=== PATIENT | female | born 1960 | race Caucasian/White ===

== ENCOUNTER → 2019-01-19 | Outpatient (CLI) | payer MEDICARE ==
--- NOTE | 2019-01-19 14:54 | CT ---
EXAMINATION TYPE: CT lower extremity RT wo con DATE OF EXAM: 01/19/2019 COMPARISON: None HISTORY: Right foot pain and deformity. CT DLP: 254.7 mGycm Automated exposure control for dose reduction was used. FINDINGS: Bone mineralization is decreased. There are osteoarthritic changes, spurring and joint space loss at the tibiotalar joint. Small ossific densities present at the level of the anterior aspect at the dist al talofibular joint may be due to old trauma. Large geode present in the sustentaculum jo and ther e are geodes within the cuboid and adjoining calcaneus. Bony ankylosis is present at the proximal fou rth and fifth metatarsals. Joint space loss present at the tarsometatarsal joints with marginal spurr ing present also at the intertarsal joints. No evident fracture or dislocation. Equinovarus deformity noted. Achilles tendon shows calcification at its insertion site. There is some atrophy of the muscu lature within the foot, fatty replacement. Increased soft tissue attenuation present at the level of the proximal fifth metatarsal could be indicative of underlying cellulitis, similar findings at the l evel of the distal aspect of the fifth metatarsal. Flexor and extensor tendons. To be intact. Peronea l longus and brevis tendons also thought to be intact. IMPRESSION: EQUINOVARUS RIGHT FOOT DEFORMITY, MARKED OSTEOARTHRITIC CHANGE, LOSS OF BONE MINERALIZATION, POSSIBLE CELLULITIS AND ADDITIONAL FINDINGS ABOVE INCLUDING BONY ANKYLOSIS OF THE PROXIMAL FOURTH AND FIFTH M ETATARSALS
== END ==
LOC: RADCTMAIN 13:51
PROVIDERS: ATTEND Orthopaedic Surgery
DX: M19.071 Primary osteoarthritis, right ankle and foot (principal); Q66.0 Congenital talipes equinovarus

== ENCOUNTER 2019-04-12 07:59 | Inpatient (IN) | payer MEDICARE ==
[2019-04-10 16:04] VITALS: BMI 36.6
[~2019-04-12 07:59] MED LIST: DEXAMETHASONE SOD PHOSPHATE 10 MG/ML 1 ML VIAL IV ONE; HYDROmorphone 0.5 MG/0.5 ML SYRINGE IVP PRN; LACTATED RINGERS 1,000 ML IV SCH; LIDOCAINE 1% 20 ML VIAL (10MG/ML) FOR IV START INTRADERMA PRN; MIDAZOLAM 2 MG/2 ML VIAL IV PRN; ONDANSETRON 4 MG/2 ML VIAL IVP ONE; SCOPOLAMINE 1.5MG/72HR PATCH TRANSDERM ONE
[2019-04-12 08:56] LABS: Glucose,Whole Blood 110 mg/dL (75-99)
[2019-04-12] MEDS ORDERED: MIDAZOLAM 2 MG/2 ML VIAL IVP ONE (09:27)
[2019-04-12] MEDS ORDERED: fentaNYL (PF) 50 MCG/ML 2 ML AMP ONE (10:49)
[2019-04-12] MEDS ORDERED: DEXAMETHASONE SOD PHOSPHATE 4 MG/ML 1 ML VIAL ONE (10:49)
[2019-04-12] MEDS ORDERED: MIDAZOLAM 2 MG/2 ML VIAL ONE (10:49)
[2019-04-12] MEDS ORDERED: LIDOCAINE 1% INJ 10MG/ML (20 ML MDV) ONE (10:49)
[2019-04-12] MEDS ORDERED: ePHEDrine SULFATE/0.9% NACL/PF 50 MG/5 ML SYRINGE IV ONE (10:49)
[2019-04-12] MEDS ORDERED: SUCCINYLCHOLINE CHLORIDE 100 MG/5 ML SYR IV ONE (10:49)
[2019-04-12] MEDS ORDERED: PROPOFOL 10 MG/ML 20 ML VIAL IV ONE (10:49)
[2019-04-12] MEDS ORDERED: ROPIVACAINE 5 MG/ML 30 ML VIAL ONE (10:49)
[2019-04-12] MEDS ORDERED: LACTATED RINGERS 1,000 ML IV ONE (13:31)
--- NOTE | 2019-04-12 13:45 | XR ---
Limited right ankle HISTORY: Arthrodesis 8 intraoperative C-arm images document the procedure
--- NOTE | 2019-04-12 13:45 | FL ---
Fluoroscopy HISTORY: Subtalar arthrodesis 1 minute 43 seconds fluoroscopy time supplied to the referring clinician. 8 intraoperative C-arm radha ges document the procedure. See dictated report from orthopedic surgery.
[2019-04-12] MEDS ORDERED: SENNOSIDES-DOCUSATE SODIUM 1 EACH TAB PO PRN (14:02)
[2019-04-12] MEDS ORDERED: HYDROmorphone 1 MG/ML 1 ML SYRINGE IVP PRN (14:02)
[2019-04-12] MEDS ORDERED: HYDROmorphone 0.5 MG/0.5 ML SYRINGE IVP PRN ×2 (14:02)
[2019-04-12] MEDS ORDERED: HYDROcodone/APAP 5-325MG 1 EACH TAB PO PRN (14:02)
[2019-04-12] MEDS ORDERED: hydrOXYzine PAMOATE 25 MG CAP PO PRN (14:02)
[2019-04-12] MEDS ORDERED: ONDANSETRON 4 MG/2 ML VIAL IVP PRN (14:02)
--- NOTE | 2019-04-12 14:12 | P.OP ---
Date of Procedure: 04/12/19 Preoperative Diagnosis: 1. fixed right equina cavovarus foot deformity ( majority of deformity through Chopart's joints) 2. Diabetes 3. Obesity with BMI of 39.1 Postoperative Diagnosis: same Procedure(s) Performed: 1. Double arthrodesis (arthrodesis of the subtalar and talonavicular joint) 2. Open Achilles tendon Z-lengthening 3. Open flexor tendon tenotomy of the posterior tibial tendon and FDL tendon 4. Posteromedial ankle capsular release 5. Open plantar fascia release 6. Peroneus longus to brevis tendon transfer 7. application of short-leg splint by physician Anesthesia: VIVEK regional Surgeon: Dagoberto Beavers Commercial Stripper #1: Katerin Hernandez Estimated Blood Loss (ml): 25 IV fluids (ml): 1,700 Condition: stable Disposition: PACU Indications for Procedure: the patient is a very pleasant 59-year-old female with multiple medical problems including diabetes and a BMI 39.1 who developed a fixed and rigid equina cavovarus deformity of her foot. She was initially managed nonsurgically with bracing but developed progressively worsening deformity and significant pain. She was walking on the lateral border of her foot. She had x-rays and a computed tomography scan. We discussed different treatment options including bracing and surgery. The patient and her family requested surgery. We discussed gradual correction with an external fixator versus surgical correction in one setting with an extensive soft tissue release and hindfoot arthrodesis. The patient and her family requested the latter. We discussed the potential risks and applications of surgery including but not limited to risks from anesthesia, superficial infection, deep infection, delayed wound healing, under correction, overcorrection, malunion, nonunion, symptomatically hardware, damage to local blood pulses are nerves, DVT, PE, other medical complications, dissatisfaction with surgery, need for further surgery, and possibly loss of life or limb. The patient and her family understand the bodies of the most common complications other less common Locations are possible. They provided their verbal and written consent to go forward with surgery. Description of Procedure: the patient was identified and prepped with holding and the correct right leg was marked with my initials. I reviewed the consent form with the patient and her family. All their questions were answered. The block was given by anesthesia. The patient was then brought back to the operating room. She was positioned on the OR table where general anesthetic and preoperative antibiotics were given. A tourniquet was applied to the proximal aspect the right leg. A bump was placed on the right buttock internally rotating the leg in neutral. The left leg was secured to table with foam tape. The right leg was then prepped and draped in the standard sterile fashion. Prior to starting surgery timeout was performed identifying the correct patient, operative extremity, procedure. The patient's leg was then elevated, exsanguinated with an Esmarch bandage, the tourniquet was inflated to 250 mmHg. Next I began by performing an open lengthening of the Achilles tendon. A longitudinal incision was made over the posteromedial Achilles tendon. Skin incision made a scalpel and dissection was carried down The subcu tenuous tissue. The peritenon was opened. A Z-lengthening of the Achilles tendon was performed. The plantaris tendon was also released. The posterior medial ankle capsule was sharply released taking care to dissect and retract the neurovascular bundle. The wound was then thoroughly irrigated and closed in layers. A 3 cm incision was made over the plantar medial aspect of the foot over the proximal plantar fascia. Skin incision made with a scalpel and dissection was carried down carefully to the subcu tenuous tissue with tenotomy scissors. Plantar fascia was identified and completely released allowing improvement in the patient's midfoot cavus. The wound was thoroughly irrigated and closed in layers. Attention was then turned to the medial arch of the foot. A longitudinal incision was made centered over the talonavicular joint extending proximally to the medial malleolus and extending distally to the midshaft of the metatarsal. Dissection was carried down carefully to the subcu gait is tissue with tenotomy scissors. Crossing veins were controlled with electrocautery. The posterior tibial tendon was identified and sharply released. The FDL tendon was found to be "bowstring" tight and was also released. The joint capsule of the talonavicular joint was sharply opened and released. At this point I was able to passively correct a large majority of the deformity through the talonavicular and subtalar joints. Clinically the foot looked markedly improved. There is still a small amount of plantarflexion through the first ray so an incision was made in the retro-fibular region and a peroneus longus to brevis tendon transfer was performed. Attention was then turned to the hindfoot fusion. The medial aspect of the talonavicular joint was approached through the prior medial incision. A counter incision was made over the dorsolateral aspect of the talonavicular joint. Dissection was carried down to the joint dorsally. The joint was carefully exposed and K wires were placed to allow distraction. All the remaining articular cartilage was removed with osteotomes and curettes. The wound was thoroughly irrigated. The joint was perforated with a 2.0 mm drill to facilitate fusion. A mixture of augment was injected to facilitate fusion. The lateral incision from the peroneus longus to brevis tendon was then extended over the posterior facet of the subtalar joint. K wires were placed in the talus and calcaneus and a distractor was applied. The articular cartilage from the posterior and middle facets were removed using osteotomes and curettes. The joint was thoroughly irrigated. A 2.0 mm drill bit was used to perforate the subchondral bone to facilitate fusion. At this point the joints and foot were reduced mainly talonavicular joint. A K wire was placed through the navicular tuberosity into the talus nicely holding the reduction. The subtalar joint was held reduced and a single partially threaded 7.0 mm cannulated screws placed across the subtalar joint generating excellent compression. A cannulated 5.5 mm screw was then placed into the navicular tuberosity into the talus. A final 4.0 mm screw was placed dorsolaterally across the talonavicular joint. All wounds were thoroughly irrigated and closed in layers. Sterile dressings were applied followed by well-padded bulky Conte splint. The patient was then awoken from her anesthetic transferred from or table to a [place] and brought to recovery in positive procedure well. Katerin Hernandez PA-C was required as a skilled management assistant for patient positioning, surgical exposure, retraction, placement of hardware, closure of wounds, application of splint. Plan: The patient is going to be admitted for IV pain control, medical management, and placement. She is remain nonweightbearing on the operative extremity. She is to keep her splint on at all times. She'll follow-up in the office in 2 weeks for splint removal and wound check.
[2019-04-12 16:24] LABS: Basophils % (A) 0 %; Eosinophils % (A) 0 %; HGB 14.3 gm/dL (11.4-16.0); Lymphocytes # (A) 0.9 k/uL (1.0-4.8); Lymphocytes % (A) 9 %; MCH 30.8 pg (25.0-35.0); MCHC 32.5 g/dL (31.0-37.0); MCV 94.7 fL (80.0-100.0); Mean Platelet Volume 8.5; Monocytes # (A) 0.1 k/uL (0-1.0); Monocytes % (A) 1 %; Neutrophils # (A) 9.1 k/uL (1.3-7.7); Neutrophils % (A) 90 %; Platelet Count 299 k/uL (150-450); RBC 4.65 m/uL (3.80-5.40); RDW 12.2 % (11.5-15.5); WBC 10.2 k/uL (3.8-10.6)
[2019-04-12 16:58] LABS: Glucose,Whole Blood 120 mg/dL (75-99)
[2019-04-12] MEDS: HYDROcodone/APAP 5-325MG 1 EACH TAB PO PRN (18:25)
[2019-04-12] MEDS: LACTATED RINGERS 1,000 ML IV SCH (19:07)
--- NOTE | 2019-04-12 21:20 | P.ANPRN ---
Procedure Note - Anesthesia - Nerve Block Performed Right Popliteal Single Time Out Performed: Yes Date of Procedure: 04/12/19 Procedure Start Time: Procedure Stop Time: Location of Patient: PreOp Indication: Acute Post-Operative Pain, Requested by Surgeon Sedation Type: Sedate with meaningful contact maintained Preparation: Sterile Prep Position: Left Lateral Needle Types: Pajunk Needle Gauge: 21 Ultrasound used to visualize needle placement: Yes Ultrasound used to observe medication spread: Yes Blood Aspirated: No Pain Paresthesia on Injection Noted: No Resistance on Injection: Normal Image Stored and Saved: Yes Events: Uneventful and Well Tolerated (ropi .5% 30cc plus dexamethasone 4mg)
[2019-04-13] MEDS: LACTATED RINGERS 1,000 ML IV SCH ×3 (00:10→20:13)
[2019-04-13] MEDS: HYDROcodone/APAP 5-325MG 1 EACH TAB PO PRN ×3 (02:39→18:08)
[2019-04-13] MEDS: ENOXAPARIN 40 MG/0.4 ML SYRINGE SQ SCH (08:31)
--- NOTE | 2019-04-13 08:39 | P.PN ---
Subjective Progress Note Date: 04/13/19 this patient is a 59-year-old female with past medical history of diabetes who presented to [facility]. The patient underwent a right subtalar and talonavicular joint arthrodesis, open Achilles tendon Z- lengthening, open flexor tendon tenotomy of the posterior tibial tendon and FDL tendon, peroneus longus to brevis tendon transfer, open plantar fascia release, and posterior medial ankle capsular release on 04/12/[address] Beavers. Today's postoperative day #1. The patient is examined bedside. The patient states her pain is currently well-controlled. She has not been up out of bed with therapy. She is tolerating her diet well. She has not a bowel movement postoperatively, she denies abdominal pain. Overall, she states she is feeling well this morning. Patient denies chest pain, shortness breath, nausea, vomiting. She denies numbness or tingling of the right lower extremity. Vital signs stable. Objective - Vital Signs Vital signs: Vital Signs Temp 97.8 F 04/13/19 07:00 Pulse 86 04/13/19 07:00 Resp 17 04/13/19 07:00 BP 105/71 04/13/19 07:00 Pulse Ox 94 L 04/13/19 07:00 Intake & Output 04/12/19 04/13/19 04/13/19 18:59 06:59 18:59 Intake Total 1450 Output Total 625 600 Balance 825 -600 Weight 96.933 kg Intake: IV 1250 Oral 200 Output: Urine 600 600 Estimated Blood Loss 25 Other: Voiding Method Bedside Commode Bedpan # Voids 1 - Exam On examination, the patient is lying in bed in no acute distress. The patient is alert and oriented 3. On inspection of the right lower extremity, there is a bulky Conte splint in place. The splint is clean, dry, and intact. The right toes are warm and well perfused, with capillary refill less than 2 seconds. The patient is able to plantar flex and dorisiflex the right toes without difficulty, no pain with PROM of the toes. Motor and sensory function are intact of the right lower extremity. Left lower extremity compression cuff in place. The left calf is soft and nontender. - Labs CBC & Chem 7: 04/12/19 15:27 Labs: Abnormal Lab Results - Last 24 Hours (Table) 04/12/19 04/12/19 04/12/19 Range/Units 08:55 15:27 15:27 Neutrophils # 9.1 H (1.3-7.7) k/uL Lymphocytes # 0.9 L (1.0-4.8) k/uL POC Glucose (mg/dL) 110 H (75-99) mg/dL Vitamin D 25-Hydroxy 19.5 L (30.0-100.0) ng/mL 04/12/19 Range/Units 16:46 Neutrophils # (1.3-7.7) k/uL Lymphocytes # (1.0-4.8) k/uL POC Glucose (mg/dL) 120 H (75-99) mg/dL Vitamin D 25-Hydroxy (30.0-100.0) ng/mL Assessment and Plan Assessment: Fixed right equina cavovarus foot deformity status-post right subtalar and talonavicular joint arthrodesis, open Achilles tendon Z-lengthening, open flexor tendon tenotomy of the posterior tibial tendon and FDL tendon, peroneus longus to brevis tendon transfer, open plantar fascia release, and posterior medial ankle capsular release on 04/12/[address] Beavers. Post-operative day #1. Plan: - Strict nonweightbearing of the right lower extremity. Ice and elevate the right lower extremity to decrease pain and swelling. - Physical therapy for gait and balance training. - Continue pain management. Decrease use of IV diluadid as tolerated. - Lovenox while she is inpatient for DVT prophylaxis, aspirin on discharge. - 2 doses of postoperative antibiotics complete. - Appreciate internal medicine consultation for nilson-operative medical management. - Anticipate discharge to rehab Tuesday or Tuesday. Patient discussed with Dr. Beavers.
[2019-04-13] MEDS: ERGOCALCIFEROL 50,000 UNIT CAP PO SCH (12:36)
[2019-04-13] MEDS: CHOLECALCIFEROL 1,000 UNIT TAB PO SCH (12:36)
--- NOTE | 2019-04-13 16:47 | P.CONS ---
History of Present Illness - Reason for Consult Consult date: 04/13/19 - Chief Complaint medical management - History of Present Illness 59 years old female patient of Dr. Delaney with past medical history of diabetes, hypertension, hyperlipidemia presented for an elective right subtalar and talonavicular joint arthrodesis open flexor tendon tenotomy of the posterior TPO tendon and FDL tendon, peroneus longus to brevis tendon transfer, open plantar fascia release and Posterior medial ankle capsular release on 04/[address] Beavers. Patient was evaluated postoperatively and was found to be doing well. Pain is under control. Patient denies any history of hypoglycemia. patient denies any chest pain, shortness of breath, abdominal pain, nausea, vomiting, Marinol or hematemesis or hematuria. He does have diabetescontrolled with metformin. Vitamin Perri suggested temp of 98.1 pulse92 blood pressure 103/69.on evaluation blood work patient had a WBC of 10.2 hemoglobin 14.3 glucose 120 vitamin D 19.5started on 50,000 units every 3 days. No CMP in chart. ID was consulted for medical management Review of Systems Constitutional: Denies chills, Denies fever, Denies lethargy, Denies malaise, Denies poor appetite, Denies weakness, Denies weight loss Eyes: denies decreased vision, denies diplopia, denies discharge, denies pain Ears: deny: decreased hearing Ears, nose, mouth and throat: Denies dental pain, Denies headache, Denies nasal discharge, Denies nose pain Cardiovascular: Denies chest pain, Denies decreased exercise tolerance, Denies edema, Denies high blood pressure, Denies irregular heart beat, Denies palpitati ons, Denies paroxysmal nocturnal dyspnea, Denies rapid heart beat, Denies shortness of breath Respiratory: Denies congestion, Denies cough, Denies cough with sputum, Denies dyspnea, Denies home oxygen, Denies wheezing Gastrointestinal: Denies abdominal pain, Denies change in bowel habits, Denies coffee ground emesis, Denies early satiety, Denies excessive gas, Denies heartburn, Denies hematemesis, Denies hematochezia, Denies loss of appetite, Denies nausea, Denies vomiting Genitourinary: Denies dysuria, Denies flank pain, Denies kidney stones, Denies menorrhagia, Denies urgency, Denies urinary frequency Musculoskeletal: endorses foot and ankle pain for surgery Integumentary: Denies rash, Denies wounds, Denies brittle nails, Denies change in hair/nails, Denies darkening of skin Neurological: Denies balance difficulties, Denies change in speech, Denies double vision, Denies gait dysfunction, Denies loss of vision, Denies motor disturbance, Denies numbness, Denies paralysis, Denies paresthesias, Denies seizures Psychiatric: Denies anxiety, Denies depression Endocrine: Denies excessive sweating, Denies excessive thirst, Denies high blood sugars, Denies palpitations Hematologic/Lymphatic: Denies easy bruising, Denies lymphadenopathy Past Medical History Past Medical History: Diabetes Mellitus, Eye Disorder, Hearing Disorder / Deafness, Hyperlipidemia, Hypertension, Osteoarthritis (OA) Additional Past Medical History / Comment(s): Bilateral Glaucoma, bilateral hearing aid use. History of Any Multi-Drug Resistant Organisms: None Reported Past Surgical History: Joint Replacement Additional Past Surgical History / Comment(s): Bilateral knee replacements, incontinent at times Past Anesthesia/Blood Transfusion Reactions: No Reported Reaction Past Psychological History: No Psychological Hx Reported Smoking Status: Never smoker Past Alcohol Use History: None Reported Past Drug Use History: None Reported - Past Family History Mother Family Medical History: Cancer, Pulmonary Embolus Father Family Medical History: Cancer Medications and Allergies Home Medications Medication Instructions Recorded Confirmed Type Aspirin 325 mg PO DIRECTED PRN 04/10/19 04/12/19 History Atenolol [Tenormin] 50 mg PO DAILY 04/10/19 04/12/19 History Losartan/Hydrochlorothiazide 1 tab PO DAILY 04/10/19 04/12/19 History [Hyzaar 100-25 Tablet] Multivitamins, Thera [Multivitamin 1 tab PO DAILY 04/10/19 04/12/19 History (formulary)] Oxybutynin Chloride [Ditropan] 10 mg PO BID 04/10/19 04/12/19 History Pravastatin Sodium [Pravachol] 40 mg PO DAILY 04/10/19 04/12/19 History Systane Balance 1 drop BOTH EYES BID 04/10/19 04/12/19 History Timolol 0.5% Ophth Soln [Timoptic 1 drop BOTH EYES HS 04/10/19 04/12/19 History 0.5% Ophth Soln] Turmeric Root Extract [Turmeric] 500 mg PO DAILY 04/10/19 04/12/19 History metFORMIN HCL [Glucophage] 500 mg PO DAILY 04/10/19 04/12/19 History Aspirin 325 mg PO DAILY #14 tab 04/13/19 Rx Cholecalciferol (Vitamin D3) 2,000 unit PO DAILY #30 capsule 04/13/19 Rx [Vitamin D3] Docusate [Colace] 100 mg PO BID #60 capsule 04/13/19 Rx Ergocalciferol [Vitamin D2] 50,000 unit PO Q72H #14 cap 04/13/19 Rx Hydrocodone/Acetaminophen [Hayes 1 tab PO Q4-6H PRN #40 tab 04/13/19 Rx 5-325] Allergies Allergy/AdvReac Type Severity Reaction Status Date / Time No Known Allergies Allergy Verified 04/12/19 08:31 Physical Exam Vitals: Vital Signs Temp Pulse Resp BP Pulse Ox 04/13/19 14:45 98.5 F 92 17 103/69 96 04/13/19 07:00 97.8 F 86 17 105/71 94 L 04/13/19 03:30 16 04/13/19 00:46 98 F 93 16 132/82 96 04/13/19 00:10 16 04/12/19 19:53 16 04/12/19 19:47 98 F 97 16 147/93 97 04/12/19 17:10 75 151/98 100 04/12/19 16:55 75 147/94 99 04/12/19 16:40 74 145/93 100 04/12/19 16:25 74 144/87 100 Intake and Output 04/13/19 04/13/19 04/13/19 06:59 14:59 22:59 Intake Total 500 Output Total 600 Balance -600 500 Intake: Oral 500 Output: Urine 600 Other: Voiding Method Bedside Commode Bedpan # Voids 1 - Constitutional General appearance: cooperative, no acute distress, appropriate for age - EENT Eyes: anicteric sclerae, PERRLA, normal appearance ENT: hearing grossly normal - Neck Neck: no lymphadenopathy, normal ROM, no other, no rigidity, no stridor, no thyromegaly - Respiratory Respiratory: bilateral: CTA, negative: diminished, dullness, rales, rhonchi - Cardiovascular Rhythm: regular Heart sounds: normal: S1, S2 Abnormal Heart Sounds: no systolic murmur, no diastolic murmur, no rub, no S3 Gallop, no S4 Gallop, no click, no other - Gastrointestinal General gastrointestinal: normal bowel sounds, soft - Integumentary Integumentary: no rash - Neurologic Neurologic: CNII-XII intact - Musculoskeletal Musculoskeletapatient's has single good mobility of right toes with minimal pain. Peripheral pulses are present with a capillary refill of less than 2 seconds - Psychiatric Psychiatric: A&O x's 3, appropriate affect Results CBC & Chem 7: 04/12/19 15:27 Labs: Abnormal Lab Results - Last 24 Hours (Table) 04/12/19 04/12/19 04/12/19 Range/Units 15:27 15:27 16:46 Neutrophils # 9.1 H (1.3-7.7) k/uL Lymphocytes # 0.9 L (1.0-4.8) k/uL POC Glucose (mg/dL) 120 H (75-99) mg/dL Vitamin D 25-Hydroxy 19.5 L (30.0-100.0) ng/mL Assessment and Plan Plan: #1 postoperative day 1 of right subtalar and talo navicular joint arthrodesis with open echo less tender and Z-lengthening, open flexor tendon tenotomy of the posterior tibial tendon and FDL tendon, peroneus longus2 previous tendon transfer open plantar fascial release and posterior medial ankle capsular release so patient on strict non-weight bearing. Ice and elevation of the right lower extremity is recommended by orthopedics. Physical therapy consulted pain management per primary team continue Lovenox for DVT prophylaxis #2 hyperlipidemia continue pravastatin 40 mg by mouth daily #3 type 2 diabetes glucose ranging from 110-120. Continue insulin sliding scale hold metformin kidney function test ordered to help decide restarting medication. #4 hypertension atenolol be restarted at 50 mg by mouth daily hold losartan and hydrochlorothiazide and Toprol kidney functions are noted. #5 vitamin D deficiency continue vitamin D 2 50,000 every third day . #6 constipation continue Colace 100 twice a day #7 DVT prophylaxis with Lovenox planned to switch to aspirin on discharge #8 Code status full code #9 urinary incontinence continue oxybutynin 10 mg twice a day Thank you for the consult and I'll be happy to assist in patient's medical need while patient is in the hospital
[2019-04-13] MEDS: OXYBUTYNIN CHLORIDE 5 MG TAB PO SCH (22:29)
[2019-04-14 07:48] LABS: ALT 11 U/L (4-34); AST 18 U/L (14-36); African American GFR (CKD) >90 (>60 ml/min/1.73 sqM); Alkaline Phosphatase 62 U/L (38-126); Anion Gap 5 mmol/L; Blood Urea Nitrogen 9 mg/dL (7-17); Calcium 8.8 mg/dL (8.4-10.2); Carbon Dioxide 29 mmol/L (22-30); Chloride 104 mmol/L (98-107); Glucose 94 mg/dL (74-99); Non-African American GFR(CKD) >90 (>60 ml/min/1.73 sqM); Potassium 4.2 mmol/L (3.5-5.1); Sodium 138 mmol/L (137-145); Total Bilirubin 0.6 mg/dL (0.2-1.3); Total Protein 5.8 g/dL (6.3-8.2)
[2019-04-14] MEDS: HYDROcodone/APAP 5-325MG 1 EACH TAB PO PRN ×3 (08:48→22:20)
[2019-04-14] MEDS: OXYBUTYNIN CHLORIDE 5 MG TAB PO SCH ×2 (08:48→20:47)
[2019-04-14] MEDS: ATENOLOL 50 MG TAB PO SCH (08:49)
[2019-04-14] MEDS: ENOXAPARIN 40 MG/0.4 ML SYRINGE SQ SCH (08:49)
[2019-04-14] MEDS: PRAVASTATIN SODIUM 40 MG TAB PO SCH (08:49)
--- NOTE | 2019-04-14 10:31 | P.PN ---
Subjective Progress Note Date: 04/14/19 Principal diagnosis: Ankle surgery No major events reported by nursing staff patient's currently is denying chest pain shortness breath nausea vomiting dumping dizziness lightheadedness or blurry vision tolerating diet and has voided successfully and passing flatus Objective - Vital Signs Vital signs: Vital Signs Temp 98.1 F 04/14/19 07:00 Pulse 83 04/14/19 07:00 Resp 16 04/14/19 07:00 BP 127/85 04/14/19 07:00 Pulse Ox 94 L 04/14/19 07:00 Intake & Output 04/13/19 04/14/19 04/14/19 18:59 06:59 18:59 Intake Total 700 Output Total 2400 Balance 700 -2400 Intake: Oral 700 Output: Urine 2400 Other: Voiding Method Bedside Commode Diaper Bedpan # Voids 1 - Exam Gen.: in stated age, no acute distress Heart: Normal S1-S2 Lungs: Clear to auscultation bilaterally Abdomen: Soft, no tenderness, positive bowel sounds in all 4 quadrant no guarding or rebound Skin: No new rash Psych: Alert and oriented 3 Neuro: No focal deficit - Labs CBC & Chem 7: 04/12/19 15:27 04/14/19 07:01 Labs: Abnormal Lab Results - Last 24 Hours (Table) 04/14/19 Range/Units 07:01 Total Protein 5.8 L (6.3-8.2) g/dL Albumin 3.0 L (3.5-5.0) g/dL Assessment and Plan Assessment: 1. Status post right foot surgery. 2. Diabetes mellitus type 2. 3. Hypertension. 4. Hyperlipidemia. 5. Intractable pain Pain under fair control we'll continue current regimen continue bowel regimen and encourage oral intake and encourage range of motion. Continue current medication with holding parameters monitor vital signs closely and repeat blood work in the morning
[2019-04-14] MEDS: CHOLECALCIFEROL 1,000 UNIT TAB PO SCH (11:19)
--- NOTE | 2019-04-14 17:12 | P.PN ---
Subjective Progress Note Date: 04/14/19 Principal diagnosis: S/P right subtalar and talonavicular joint arthrodesis, open Achilles tendon Z- lengthening, open flexor tendon tenotomy of the posterior tibial tendon and FDL tendon, peroneus longus to brevis tendon transfer, open plantar fascia release, and posterior medial ankle capsular release Patient is a pleasant 59 year old female seen at bedside this am. She is S/P right subtalar and talonavicular joint arthrodesis, open Achilles tendon Z- lengthening, open flexor tendon tenotomy of the posterior tibial tendon and FDL tendon, peroneus longus to brevis tendon transfer, open plantar fascia release, and posterior medial ankle capsular release on 04/12/19. She has pain at the surgical site as expected and controlled but denies any new complaints. She denies numbness, tingling or calf pain. Review of systems is negative for fever, chills, chest pain, shortness of breath or other Objective - Vital Signs Vital signs: Vital Signs Temp 97.8 F 04/14/19 14:23 Pulse 66 04/14/19 14:23 Resp 16 04/14/19 14:23 BP 104/72 04/14/19 14:23 Pulse Ox 96 04/14/19 14:23 Intake & Output 04/13/19 04/14/19 04/14/19 18:59 06:59 18:59 Intake Total 700 Output Total 2400 800 Balance 700 -2400 -800 Intake: Oral 700 Output: Urine 2400 800 Other: Voiding Method Bedside Commode Diaper Bedpan # Voids 1 - Exam On examination, the patient is lying in bed in no acute distress. The patient is alert and oriented 3. On inspection of the right lower extremity, there is a bulky Conte splint in place. The splint is clean, dry, and intact. The right toes are warm and well perfused, with capillary refill less than 2 seconds. The patient is able to plantar flex and dorisiflex the right toes without difficulty, no pain with PROM of the toes. Motor and sensory function are intact of the right lower extremity. Left lower extremity compression cuff in place. The left calf is soft and nontender. - Constitutional General appearance: Present: no acute distress - Labs CBC & Chem 7: 04/12/19 15:27 04/14/19 07:01 Labs: Abnormal Lab Results - Last 24 Hours (Table) 04/14/19 Range/Units 07:01 Total Protein 5.8 L (6.3-8.2) g/dL Albumin 3.0 L (3.5-5.0) g/dL Assessment and Plan (1) Acquired equinovarus deformity of right foot Narrative/Plan: - Strict nonweightbearing of the right lower extremity. Ice and elevate the right lower extremity to decrease pain and swelling. - Physical therapy for gait and balance training. - Continue pain management. Decrease use of IV diluadid as tolerated. - Lovenox while she is inpatient for DVT prophylaxis, aspirin on discharge. - 2 doses of postoperative antibiotics complete. - Appreciate internal medicine consultation for nilson-operative medical ma rox. - Anticipate discharge to rehab on Tuesday. Current Visit: Yes Status: Acute Priority: Medium Code(s): M21.541 - ACQUIRED CLUBFOOT, RIGHT FOOT SNOMED Code(s): 874260474 Time with Patient: Less than 30
[2019-04-14] MEDS: LACTATED RINGERS 1,000 ML IV SCH ×2 (17:19→19:52)
[2019-04-15] MEDS: HYDROcodone/APAP 5-325MG 1 EACH TAB PO PRN ×3 (06:12→20:08)
[2019-04-15] MEDS: ENOXAPARIN 40 MG/0.4 ML SYRINGE SQ SCH (07:39)
[2019-04-15] MEDS: OXYBUTYNIN CHLORIDE 5 MG TAB PO SCH ×2 (07:39→20:08)
[2019-04-15] MEDS: PRAVASTATIN SODIUM 40 MG TAB PO SCH (07:40)
[2019-04-15] MEDS: CHOLECALCIFEROL 1,000 UNIT TAB PO SCH (07:40)
[2019-04-15] MEDS: ATENOLOL 50 MG TAB PO SCH (07:40)
--- NOTE | 2019-04-15 11:45 | P.PN ---
Subjective Progress Note Date: 04/15/19 Principal diagnosis: S/P right subtalar and talonavicular joint arthrodesis, open Achilles tendon Z- lengthening, open flexor tendon tenotomy of the posterior tibial tendon and FDL tendon, peroneus longus to brevis tendon transfer, open plantar fascia release, and posterior medial ankle capsular release Patient is a pleasant 59 year old female seen at bedside this am. She is S/P right subtalar and talonavicular joint arthrodesis, open Achilles tendon Z- lengthening, open flexor tendon tenotomy of the posterior tibial tendon and FDL tendon, peroneus longus to brevis tendon transfer, open plantar fascia release, and posterior medial ankle capsular release on 04/12/19. She has pain at the surgical site as expected but continues to improve. She denies any new complaints. She denies numbness, tingling or calf pain. Review of systems is negative for fever, chills, chest pain, shortness of breath or other Objective - Vital Signs Vital signs: Vital Signs Temp 98.1 F 04/15/19 07:00 Pulse 85 04/15/19 07:00 Resp 16 04/15/19 07:00 BP 126/89 04/15/19 07:00 Pulse Ox 98 04/15/19 07:00 Intake & Output 04/14/19 04/15/19 04/15/19 18:59 06:59 18:59 Intake Total 120 Output Total 800 700 600 Balance -800 -580 -600 Intake: Oral 120 Output: Urine 800 700 600 Other: Voiding Method Diaper - Exam On examination, the patient is lying in bed in no acute distress. The patient is alert and oriented 3. On inspection of the right lower extremity, there is a bulky Conte splint in place. The splint is clean, dry, and intact. The right toes are warm and well perfused, with capillary refill less than 2 seconds. The patient is able to plantar flex and dorisiflex the right toes without difficulty, no pain with PROM of the toes. Motor and sensory function are intact of the right lower extremity. Left lower extremity compression cuff in place. The left calf is soft and nontender. - Constitutional General appearance: Present: no acute distress - Labs CBC & Chem 7: 04/12/19 15:27 04/14/19 07:01 Assessment and Plan (1) Acquired equinovarus deformity of right foot Narrative/Plan: - Strict nonweightbearing of the right lower extremity. Ice and elevate the right lower extremity to decrease pain and swelling. - Physical therapy for gait and balance training. - Continue pain management. Decrease use of IV diluadid as tolerated. - Lovenox while she is inpatient for DVT prophylaxis, aspirin on discharge. - 2 doses of postoperative antibiotics complete. - Appreciate internal medicine consultation for nilson-operative medical management. - Anticipate discharge to rehab on Tuesday. Current Visit: Yes Status: Acute Priority: Medium Code(s): M21.541 - ACQUIRED CLUBFOOT, RIGHT FOOT SNOMED Code(s): 093146246 Time with Patient: Less than 30
--- NOTE | 2019-04-15 12:41 | P.PN ---
Subjective Progress Note Date: 04/15/19 Principal diagnosis: Ankle surgery patient continued to be modalities stable no major events reported by nursing staff patient currently is denying chest pain shortness breath nausea vomiting dumping dizziness lightheadedness or blurry vision Objective - Vital Signs Vital signs: Vital Signs Temp 98.1 F 04/15/19 07:00 Pulse 85 04/15/19 07:00 Resp 16 04/15/19 07:00 BP 126/89 04/15/19 07:00 Pulse Ox 98 04/15/19 07:00 Intake & Output 04/14/19 04/15/19 04/15/19 18:59 06:59 18:59 Intake Total 120 Output Total 800 700 600 Balance -800 -580 -600 Intake: Oral 120 Output: Urine 800 700 600 Other: Voiding Method Diaper - Exam Gen.: in stated age, no acute distress Heart: Normal S1-S2 Lungs: Clear to auscultation bilaterally Abdomen: Soft, no tenderness, positive bowel sounds in all 4 quadrant no guarding or rebound Skin: No new rash Psych: Alert and oriented 3 Neuro: No focal deficit - Labs CBC & Chem 7: 04/12/19 15:27 04/14/19 07:01 Assessment and Plan Assessment: 1. Status post right foot surgery for acquired equinovarus deformity of the right foot 2. Diabetes mellitus type 2. 3. Hypertension. 4. Hyperlipidemia. 5. Intractable pain Pain under fair control we'll continue current regimen continue bowel regimen and encourage oral intake and encourage range of motion. Continue current medication with holding parameters monitor vital signs closely and repeat blood work in the morning. Continue DVT prophylaxis per primary team recommendation
[2019-04-15 15:00] VITALS: RESP 18
[2019-04-15] MEDS: LACTATED RINGERS 1,000 ML IV SCH ×2 (15:42→20:10)
[2019-04-15 19:56] LABS: Glucose,Whole Blood 121 mg/dL (75-99)
[2019-04-15] MEDS: INSULIN ASPART (NovoLOG) 100 UNIT/ML VIAL SQ SCH (20:10)
[2019-04-16] MEDS: HYDROcodone/APAP 5-325MG 1 EACH TAB PO PRN ×2 (05:03→11:14)
[2019-04-16 06:47] LABS: Glucose,Whole Blood 93 mg/dL (75-99)
[2019-04-16] MEDS: INSULIN ASPART (NovoLOG) 100 UNIT/ML VIAL SQ SCH ×2 (07:18→12:30)
[2019-04-16 07:54] VITALS: BP 126/81; PULSE 79; TEMP 99.1
--- NOTE | 2019-04-16 08:32 | P.DS ---
Providers Date of admission: 04/13/19 08:39 Expected date of discharge: 04/16/19 Attending physician: Dagoberto Beavers Consults: 04/12/19 14:07 Consult Physician Routine Consulting Provider: Eddie Lainez Reason/Comments: Medical management Do you want consulting provider notified?: Yes Primary care physician: [facility] Hospital Course: This is a 59-year-old female with a past medical history of diabetes that was seen by Dr. Beavers for fixed equina cavovarus foot deformity of the right foot. After nonsurgical treatment failed to control her symptoms, the patient requested surgery. Patient underwent a right subtalar and talonavicular joint arthrodesis, open Achilles tendon Z-lengthening, open flexor tendon tenotomy of the posterior tibial tendon FDL tendon, peroneus longus to brevis tendon transfer, open plantar fascia release, and posterior medial ankle capsular release on 04/12/[address] Beavers. The patient was admitted to [facility] following this procedure. Procedure was performed without complication or sequelae. Patient is doing well postoperatively. Vital signs and postoperative labs are stable on postoperative day #4. The patient is transferring to the bedside chair with a walker with minimal assistance. Patient was seen at bedside today and she has no new complaints. The patient states she is doing very well and she is experiencing minimal pain in the right lower extremity. She states she is having minimal issues with transferring to bedside chair. She is tolerating her diet well. She has had a bowel movement postoperatively, although she denies abdominal pain, she is also passing gas. She overall feels well today. She denies chest pain, shortness breath, nausea, vomiting, numbness or tingling of the right lower extremity. Vital signs stable. On exam the patient is sitting up in bed in no acute distress. Patient is alert and oriented 3. A Bulky Conte splint is in place to the right lower extremity. The toes are warm and well perfused with brisk capillary refill. Sensation is intact to the toes. There is no pain to passive range of motion of toes. She is able to actively move her toes without difficulty. Left lower extremity compression cuff in place. Left calf if soft and nontender. The patient is discharged to rehab in good condition, pending medical clearance. Please see discharge orders. Please refer to the med rec for accurate list of medications. Plan - Discharge Summary Discharge Rx Participant: Yes New Discharge Prescriptions: New Aspirin 325 mg PO DAILY #14 tab Docusate [Colace] 100 mg PO BID #60 capsule Hydrocodone/Acetaminophen [Atherton 5-325] 1 tab PO Q4-6H PRN #40 tab PRN Reason: Pain Ergocalciferol [Vitamin D2] 50,000 unit PO Q72H #14 cap Cholecalciferol (Vitamin D3) [Vitamin D3] 2,000 unit PO DAILY #30 capsule No Action metFORMIN HCL [Glucophage] 500 mg PO DAILY Pravastatin Sodium [Pravachol] 40 mg PO DAILY Oxybutynin Chloride [Ditropan] 10 mg PO BID Atenolol [Tenormin] 50 mg PO DAILY Systane Balance 1 drop BOTH EYES BID Losartan/Hydrochlorothiazide [Hyzaar 100-25 Tablet] 1 tab PO DAILY Timolol 0.5% Ophth Soln [Timoptic 0.5% Ophth Soln] 1 drop BOTH EYES HS Aspirin 325 mg PO DIRECTED PRN PRN Reason: Pain Multivitamins, Thera [Multivitamin (formulary)] 1 tab PO DAILY Turmeric Root Extract [Turmeric] 500 mg PO DAILY Discharge Medication List Aspirin 325 mg PO DIRECTED PRN 04/10/19 [History] Atenolol [Tenormin] 50 mg PO DAILY 04/10/19 [History] Losartan/Hydrochlorothiazide [Hyzaar 100-25 Tablet] 1 tab PO DAILY 04/10/19 [History] Multivitamins, Thera [Multivitamin (formulary)] 1 tab PO DAILY 04/10/19 [History] Oxybutynin Chloride [Ditropan] 10 mg PO BID 04/10/19 [History] Pravastatin Sodium [Pravachol] 40 mg PO DAILY 04/10/19 [History] Systane Balance 1 drop BOTH EYES BID 04/10/19 [History] Timolol 0.5% Ophth Soln [Timoptic 0.5% Ophth Soln] 1 drop BOTH EYES HS 04/10/19 [History] Turmeric Root Extract [Turmeric] 500 mg PO DAILY 04/10/19 [History] metFORMIN HCL [Glucophage] 500 mg PO DAILY 04/10/19 [History] Aspirin 325 mg PO DAILY #14 tab 04/13/19 [Rx] Cholecalciferol (Vitamin D3) [Vitamin D3] 2,000 unit PO DAILY #30 capsule [Rx] Docusate [Colace] 100 mg PO BID #60 capsule 04/13/19 [Rx] Ergocalciferol [Vitamin D2] 50,000 unit PO Q72H #14 cap 04/13/19 [Rx] Hydrocodone/Acetaminophen [Atherton 5-325] 1 tab PO Q4-6H PRN #40 tab 04/13/19 [Rx] Follow up Appointment(s)/Referral(s): LigiaLojordin abraham Willards, [NON-STAFF] - As Needed Dagoberto Beavers MD [Medical Doctor] - 2 Weeks Activity/Diet/Wound Care/Special Instructions: -Strict non-weight bearing on your operative leg. Do not remove your splint; Keep splint clean, dry, and intact -Use crutches, knee scooter, or a walker to ambulate after surgery. -Elevate and ice operative leg to help reduce swelling and control pain. -Take pain medications as prescribed. Take Colace as a stool softener. Take aspirin as prescribed for blood clot prevention. -Follow-up appointment with Dr. Beavers in the office in 2 weeks. -Call the office with any questions or concerns, Discharge Disposition: TRANSFER TO SNF/ECF
[2019-04-16] MEDS: ATENOLOL 50 MG TAB PO SCH (08:40)
[2019-04-16] MEDS: PRAVASTATIN SODIUM 40 MG TAB PO SCH (08:40)
[2019-04-16] MEDS: OXYBUTYNIN CHLORIDE 5 MG TAB PO SCH (08:40)
[2019-04-16] MEDS: CHOLECALCIFEROL 1,000 UNIT TAB PO SCH (08:40)
[2019-04-16] MEDS: ENOXAPARIN 40 MG/0.4 ML SYRINGE SQ SCH (08:41)
[2019-04-16] MEDS: ERGOCALCIFEROL 50,000 UNIT CAP PO SCH (10:21)
[2019-04-16] MEDS: LACTATED RINGERS 1,000 ML IV SCH (11:15)
[2019-04-16 11:39] LABS: Glucose,Whole Blood 91 mg/dL (75-99)
--- NOTE | 2019-04-16 19:53 | P.PN ---
Subjective Progress Note Date: 04/16/19 59 years old female patient of Dr. Delaney with past medical history of diabetes, hypertension, hyperlipidemia presented for an elective right subtalar and talonavicular joint arthrodesis open flexor tendon tenotomy of the posterior TPO tendon and FDL tendon, peroneus longus to brevis tendon transfer, open plantar fascia release and Posterior medial ankle capsular release on 04/[address] Beavers. Patient was evaluated postoperatively and was found to be doing well. Pain is under control. Patient denies any history of hypoglycemia. patient denies any chest pain, shortness of breath, abdominal pain, nausea, vomiting, Marinol or hematemesis or hematuria. He does have diabetescontrolled with metformin. Vitamin Perri suggested temp of 98.1 pulse92 blood pressure 103/69.on evaluation blood work patient had a WBC of 10.2 hemoglobin 14.3 glucose 120 vitamin D 19.5started on 50,000 units every 3 days. No CMP in chart. ID was consulted for medical management patient is being prepared for discharge to [facility] today, she does have an external catheter, no plans to continue on this, has chronic urinary incontinence,with overactive bladder, no urinalysis available for review,post operative pain under control,patient would be nonweightbearing on the right lower extremity, there is a cast on with surgical bandage, no significant edema on the thigh weight is visible. No chest pain no nausea no vomiting, aspirin 81 mg twice a day for DVT prophylaxis on discharge, medications are reconciled narcotics from orthopedics Review of Systems Constitutional: Denies chills, Denies fever, Denies lethargy, Denies malaise, Denies poor appetite, Denies weakness, Denies weight loss Eyes: denies decreased vision, denies diplopia, denies discharge, denies pain Ears: deny: decreased hearing Ears, nose, mouth and throat: Denies dental pain, Denies headache, Denies nasal discharge, Denies nose pain Cardiovascular: Denies chest pain, Denies decreased exercise tolerance, Denies edema, Denies high blood pressure, Denies irregular heart beat, Denies palpitations, Denies paroxysmal nocturnal dyspnea, Denies rapid heart beat, Denies shortness of breath Respiratory: Denies congestion, Denies cough, Denies cough with sputum, Denies dyspnea, Denies home oxygen, Denies wheezing Gastrointestinal: Denies abdominal pain, Denies change in bowel habits, Denies coffee ground emesis, Denies early satiety, Denies excessive gas, Denies heartburn, Denies hematemesis, Denies hematochezia, Denies loss of appetite, Denies nausea, Denies vomiting Genitourinary: Denies dysuria, Denies flank pain, Denies kidney stones, Denies menorrhagia, Denies urgency, Denies urinary frequency Musculoskeletal: endorses foot and ankle pain for surgery Integumentary: Denies rash, Denies wounds, Denies brittle nails, Denies change in hair/nails, Denies darkening of skin Neurological: Denies balance difficulties, Denies change in speech, Denies double vision, Denies gait dysfunction, Denies loss of vision, Denies motor disturbance, Denies numbness, Denies paralysis, Denies paresthesias, Denies seizures Psychiatric: Denies anxiety, Denies depression Endocrine: Denies excessive sweating, Denies excessive thirst, Denies high blood sugars, Denies palpitations Hematologic/Lymphatic: Denies easy bruising, Denies lymphadenopathy Objective - Vital Signs Vital signs: Vital Signs Temp 99.1 F 04/16/19 07:00 Pulse 79 04/16/19 07:00 Resp 18 04/16/19 07:00 BP 126/81 04/16/19 07:00 Pulse Ox 93 L 04/16/19 07:00 Intake & Output 04/16/19 04/16/19 04/17/19 06:59 18:59 06:59 Intake Total 480 480 Output Total 1000 950 Balance -520 -470 Intake: Oral 480 480 Output: Urine 1000 950 Other: Voiding Method Diaper # Voids 2 - Constitutional General appearance: Present: cooperative, obese - EENT Eyes: Present: anicteric sclerae, EOMI, PERRLA, dentition normal, normal appearance ENT: Present: NA/AT, normal oropharynx - Respiratory Respiratory: bilateral: CTA, negative: diminished, dullness, rales - Cardiovascular Rhythm: regular Heart sounds: normal: S1, S2 Abnormal Heart Sounds: Absent: systolic murmur, diastolic murmur, rub, S3 Gallop, S4 Gallop, click, other - Gastrointestinal General gastrointestinal: Present: normal bowel sounds, soft - Integumentary Integumentary: Present: normal - Neurologic Neurologic: Present: CNII-XII intact - Musculoskeletal Musculoskeletal: Present: strength equal bilaterally - Psychiatric Psychiatric: Present: A&O x's 3, appropriate affect - Labs CBC & Chem 7: 04/12/19 15:27 04/14/19 07:01 Labs: Abnormal Lab Results - Last 24 Hours (Table) 04/15/19 Range/Units 19:54 POC Glucose (mg/dL) 121 H (75-99) mg/dL Assessment and Plan Plan: #1 postoperative day 3 of right subtalar and talo navicular joint arthrodesis with open echo less tender and Z-lengthening, open flexor tendon tenotomy of the posterior tibial tendon and FDL tendon, peroneus longus2 previous tendon transfer open plantar fascial release and posterior medial ankle capsular release so patient on strict non-weight bearing. Ice and elevation of the right lower extremity is recommended by orthopedics. Physical therapy consulted pain management per primary team continue Lovenox for DVT prophylaxis #2 hyperlipidemia continue pravastatin 40 mg by mouth daily #3 type 2 diabetes glucose ranging from 110-120. Continue insulin sliding scale hold metformin kidney function test ordered to help decide restarting medication. #4 hypertension atenolol be restarted at 50 mg by mouth daily hold losartan and hydrochlorothiazide and Toprol kidney functions are noted. #5 vitamin D deficiency continue vitamin D 2 50,000 every third day . #6 constipation continue Colace 100 twice a day #7 DVT prophylaxis with Lovenox planned to switch to aspirin on discharge #8 Code status full code #9 urinary incontinence continue oxybutynin 10 mg twice a day
== END 2019-04-16 15:19 | DRG 502 ==
LOC: OR 07:59 → 4SSUR 14:56 → OR 04-13 08:39
PROVIDERS: ADMIT Orthopaedic Surgery; ATTEND Orthopaedic Surgery
PROC: 0LNV0ZZ Release Right Foot Tendon, Open Approach (ICD-10-PCS; 2019-04-12)
PROC: 0LXS0ZZ Transfer Right Ankle Tendon, Open Approach (ICD-10-PCS; 2019-04-12)
PROC: 0J8Q0ZZ Division of Right Foot Subcutaneous Tissue and Fascia, Open Approach (ICD-10-PCS; 2019-04-12)
PROC: 0SGH04Z Fusion of Right Tarsal Joint with Internal Fixation Device, Open Approach (ICD-10-PCS; 2019-04-12)
PROC: 0SGH0KZ Fusion of Right Tarsal Joint with Nonautologous Tissue Substitute, Open Approach (ICD-10-PCS; 2019-04-12)
PROC: 0L8S0ZZ Division of Right Ankle Tendon, Open Approach (ICD-10-PCS; principal; 2019-04-12 09:45)
DX: M21.541 Acquired clubfoot, right foot (principal); E11.40 Type 2 diabetes mellitus with diabetic neuropathy, unspecified; E11.39 Type 2 diabetes mellitus with other diabetic ophthalmic complication; M25.371 Other instability, right ankle; M21.70 Unequal limb length (acquired), unspecified site; H42 Glaucoma in diseases classified elsewhere; H40.9 Unspecified glaucoma; I10 Essential (primary) hypertension; E78.5 Hyperlipidemia, unspecified; H91.90 Unspecified hearing loss, unspecified ear; M19.90 Unspecified osteoarthritis, unspecified site; G47.39 Other sleep apnea; E55.9 Vitamin D deficiency, unspecified; K59.00 Constipation, unspecified; R32 Unspecified urinary incontinence; E66.9 Obesity, unspecified; Z68.39 Body mass index [BMI] 39.0-39.9, adult; Z79.82 Long term (current) use of aspirin; Z79.84 Long term (current) use of oral hypoglycemic drugs; Z79.899 Other long term (current) drug therapy; Z97.4 Presence of external hearing-aid; Z96.653 Presence of artificial knee joint, bilateral; Z82.49 Family history of ischemic heart disease and other diseases of the circulatory system
CPT/HCPCS: 64445; 76942; 80053; 82306; 85025

== ENCOUNTER → 2019-06-25 | Outpatient (CLI) | payer MEDICARE ==
--- NOTE | 2019-06-25 11:56 | US ---
EXAMINATION TYPE: US venous doppler duplex LE RT DATE OF EXAM: 06/25/2019 11:33 AM COMPARISON: NONE CLINICAL HISTORY: M79.671 PAIN IN RT FOOT,I10 HTN,M21.6X1 DEFORMITIES RT FOOT; ambulates by Wheelchai r post right foot reconstruction in March 2019 SIDE PERFORMED: Right TECHNIQUE: The lower extremity deep venous system is examined utilizing real time linear array sonog tanika with graded compression, doppler sonography and color-flow sonography. VESSELS IMAGED: Common Femoral Vein Deep Femoral Vein Greater Saphenous Vein * Femoral Vein Popliteal Vein Small Saphenous Vein * Proximal Calf Veins (* superficial vessels) Grayscale, color doppler, spectral doppler imaging performed of the deep veins of the right lower ext remity. There is normal flow, compressibility, vascular waveforms. Right Leg: Negative for DVT as was able to assess as US limited by large legs. There is an upper limits of normal size incidentally seen right superficial inguinal lymph node with normal cortical thickness in short axis dimension. IMPRESSION: 1. No sonographic evidence of deep venous thrombosis within the right lower extremity. Note the exami nation is slightly limited by patient body habitus. 2. Upper limit of normal size incidentally seen right superficial inguinal lymph node.
== END | disposition home or self-care (01) ==
LOC: RADUSWWP 10:56
PROVIDERS: ATTEND Orthopaedic Surgery
DX: M79.671 Pain in right foot (principal); I10 Essential (primary) hypertension